=== PATIENT | male | born 1965 | race Caucasian/White ===

== ENCOUNTER 2017-07-30 05:41 | Day surgery (SDC) | payer OTHER ==
[~2017-07-30] VITALS: Ht 177.8 cm; Wt 83.0 kg
[~2017-07-30 05:41] MED LIST: CRESTOR10 MG PO
[2017-07-30 06:15] VITALS: BP 134/87
[2017-07-30] MEDS ORDERED: COLACE100 MG PO (09:38)
[2017-07-30] MEDS ORDERED: PERCOCET 5/31 TABLET PO ×2 (09:38→09:41)
[2017-07-30] MEDS ORDERED: MOTRIN600 MG PO (09:38)
[2017-07-30 11:13] VITALS: BP 137/86
[2017-07-30 12:00] VITALS: BP 129/72
[2017-07-30 13:04] VITALS: BP 155/82
== END 2017-07-30 13:15 | disposition home or self-care (01) ==
LOC: SDC 05:41
PROC: 0YU54JZ Supplement Right Inguinal Region with Synthetic Substitute, Percutaneous Endoscopic Approach (ICD-10-PCS; principal; 2017-07-30)
DX: K40.90 Unilateral inguinal hernia, without obstruction or gangrene, not specified as recurrent (principal); K64.4 Residual hemorrhoidal skin tags; E78.5 Hyperlipidemia, unspecified
CPT/HCPCS: C1727; C1781; J0131; J0330; J0690; J1100; J1170; J2250; J2405; J2710; J3010